=== PATIENT | male | born 1970 | race Caucasian/White ===

== ENCOUNTER 2025-05-10 16:55 | Observation (INO) ==
--- NOTE | 2025-05-10 17:14 | DR.EXTPAIN ---
HPI Time seen Time Seen by Provider: 05/10/25 17:13 Complaint/Symptoms Chief Complaint Doctor Comments: 54-year-old male to ED from home POV complaining of pain Left forearm.States had contact lens curve grinder injury 3 weeks ago and repaired at [facility].Patient states increasing pain and swelling. ROS Review of Systems Constitutional: No Symptoms Reported Eyes: No Symptoms Reported ENTM: No Symptoms Reported Respiratoy: No Symptoms Reported Cardiovascular: No Symptoms Reported Gastrointestinal/Abdominal: No Symptoms Reported Genitourinary: No Symptoms Reported Neurological: No Symptoms Reported Musculoskeletal: See HPI and Arm (Right arm pain and swelling) Integumentary: No Symptoms Reported Hematologic/Lymphatic: No Symptoms Reported Endocrine: No Symptoms Reported Psychiatric: No Symptoms Reported All Other Systems: Reviewed and Negative PE Vital Signs Vitals: Vital Signs Temperature 98.3 F Pulse Rate 94 Pulse Rate 91 Pulse Rate 96 Pulse Rate 94 Pulse Rate 95 Respiratory Rate 20 Blood Pressure 123/76 Blood Pressure 123/76 Blood Pressure 143/91 Blood Pressure 122/86 O2 Sat by Pulse Oximetry 95 O2 Sat by Pulse Oximetry 94 O2 Sat by Pulse Oximetry 95 O2 Sat by Pulse Oximetry 98 O2 Sat by Pulse Oximetry 98 General Limitations: No Limitations General Appearance: Alert and In No Apparent Distress Head Head Exam: Normal Inspection Eyes Eye exam: Normal Appearance ENT ENT Exam: Normal Exam Neck Neck Exam: Normal Inspection Chest Chest Inspection: Normal Inspection Respiratory Respiratory Exam: Normal Lung Sounds Bilat Cardiovascular Cardiovascular Exam: Regular Rate and Normal Rhythm Abdominal Exam Abdominal Exam: Normal Inspection, Normal Bowel Sounds and Soft Extremities Extremities Exam: Normal Inspection (Except right arm with pain and swelling forearm) Back Back Exam: Normal Inspection Neurological Neurological Exam: Alert, Oriented X3 and CN II-XII Intact Psychiatric Psychiatric Exam: Normal Affect and Normal Mood Skin Skin Exam: Warm, Dry, Intact and Normal Color COURSE Treatment Treatment: Discussed findings with patient agrees to admission discussed with Dr. Sanchez will admit ROR Labs Reviewed 05/10/25 17:11 05/10/25 17:11 Laboratory: 05/10/25 17:15 Arm - Wound Wound Gram Stain - Final WBC 13.2 X10^3/uL (3.6-10.0) H 05/10/25 17:11 RBC 4.79 X10^6/uL (4.7-6.0) 05/10/25 17:11 Hgb 14.3 g/dL (13.5-18.0) 05/10/25 17:11 Hct 42.2 % (42.0-54.0) 05/10/25 17:11 MCV 88.1 fL (80.0-100.0) 05/10/25 17:11 MCH 29.9 pg (27.0-34.0) 05/10/25 17:11 MCHC 34.0 g/dL (33.0-35.0) 05/10/25 17:11 RDW 14.0 % (11.6-16.5) 05/10/25 17:11 Plt Count 339 X10^3/uL (150.0-450.0) 05/10/25 17:11 MPV 7.2 fL (7.4-11.0) L 05/10/25 17:11 Neut % (Auto) 76.0 % (42.0-75.0) H 05/10/25 17:11 Lymph % (Auto) 13.8 % (21.0-51.0) L 05/10/25 17:11 [place] % (Auto) 8.9 % (0.0-13.0) 05/10/25 17:11 Eos % (Auto) 0.5 % (0.9-2.9) L 05/10/25 17:11 Baso % (Auto) 0.8 % (0.2-1.0) 05/10/25 17:11 Neut # (Auto) 10.1 x10^3/uL (2.2-4.8) H 05/10/25 17:11 Lymph # (Auto) 1.8 X10^3/uL (1.3-2.9) 05/10/25 17:11 [place] # (Auto) 1.2 x10^3/uL (0.3-0.8) H 05/10/25 17:11 Eos # (Auto) 0.1 x10^3/uL (0.0-0.2) 05/10/25 17:11 Baso # (Auto) 0.1 X10^3/uL (0.0-0.1) 05/10/25 17:11 Absolute Nucleated RBC 0.1 /100WBC 05/10/25 17:11 Sodium 140 mmol/L (136-145) 05/10/25 17:11 Corrected Sodium TNP 05/10/25 17:11 Potassium 4.3 mmol/L (3.5-5.1) 05/10/25 17:11 Chloride 103 mmol/L (98-107) 05/10/25 17:11 Carbon Dioxide 29.0 mmol/L (21-32) 05/10/25 17:11 BUN 13 mg/dL (7-18) 05/10/25 17:11 Creatinine 1.31 mg/dL (0.70-1.30) H 05/10/25 17:11 Est GFR (MDRD) Af Amer > 60 (>60) 05/10/25 17:11 Est GFR (MDRD) Non-Af > 60 (>60) 05/10/25 17:11 Glucose 88 mg/dL (65-99) 05/10/25 17:11 Lactic Acid 0.8 mmol/L (0.4-2.0) 05/10/25 17:11 Calcium 8.8 mg/dL (8.5-10.1) 05/10/25 17:11 Corrected Calcium TNP 05/10/25 17:11 Total Bilirubin 0.60 mg/dL (0.2-1.0) 05/10/25 17:11 AST 17 Units/L (15-37) 05/10/25 17:11 ALT 41 Units/L (12-78) 05/10/25 17:11 Alkaline Phosphatase 88 Units/L (46-116) 05/10/25 17:11 Total Protein 8.0 g/dL (6.4-8.2) 05/10/25 17:11 Albumin 4.1 g/dL (3.4-5.0) 05/10/25 17:11 Globulin 3.9 g/dL (2.5-4.5) 05/10/25 17:11 Albumin/Globulin Ratio 1.1 Ratio (1.1-2.1) 05/10/25 17:11 Opioid Opioid Risk Tool Total: 0 Total Score Risk Category: Low Risk Copyright: Abdias TOWNSEND predicting aberrant behaviors Discharge Plan Diagnosis Discharge Problem: Cellulitis Discharge Plan Patient Disposition: 09 ADMITTED INPATIENT Condition: Stable Prescriptions: No Action [facility] Concerns: Post Hospitalization: new medications and changes needed to prevent readmission or further decline. Pt educated and given instructions on all concerns. Plan of Treatment: Continue with present treatment and follow up plan. Pt is to keep follow up appointment as instructed and take medications as ordered. Follow ups/Referrals Follow ups/Referrals: NFD,None [Primary Care Provider] - 3 days Instructions Print Language: WOLOF
[2025-05-10] MEDS: ROCEPHIN VIAL 1 GRAM IVP ONE (17:32)
[2025-05-10 17:46] LABS: MEAN PLATELET VOLUME 7.2 fL (7.4-11.0); RED CELL DISTRIBUTION WIDTH 14.0 % (11.6-16.5)
[2025-05-10 17:51] VITALS: BMI 29.5
[2025-05-10 17:55] LABS: CREATININE 1.31 mg/dL (0.70-1.30); eGFR NON BLACK RACES > 60 (>60)
[2025-05-10] MEDS ORDERED: ULTRAM PO PRN (20:09)
[2025-05-10] MEDS ORDERED: NORCO 5/325 MG TAB PO PRN (20:09)
[2025-05-10] MEDS ORDERED: NS 250 ML IV 25 ML IV PRN (20:09)
--- NOTE | 2025-05-10 20:24 | DR.EXTPAIN ---
HPI Time seen Time Seen by Provider: 05/10/25 17:13 PCP Primary Care Physician: JENNIFER Complaint/Symptoms Chief Complaint Doctor Comments: Patient stated that three weeks ago he got cut by a stand grinder and went to [facility] and received sutures. Patient stated that he was not discharged with any antibiotics. Patient stated that yesterday he hit his left forearm on a stationary object and busted open the site. Patient stated that once the area open up it started to drain green in color pus. Patinets left forearm is noted to be swollen and hot to touch and pain with movement Chief Complaint:: Patient ambulated into triage with the CC of possible infection to the left forearm. Patient stated that three weeks ago he got cut by a stand grinder and went to [facility] and received sutures. Patient stated that he was not discharged with any antibiotics. Patient stated that yesterday he hit his left forearm on a stationary object and busted open the site. Patient stated that once the area open up it started to drain green in color pus. Patinets left forearm is noted to be swollen and hot to touch and pain with movement. COVID-19 Coronavirus risk:travel/contact w/high risk person: No Has patient experienced Coronavirus symptoms: No Source History Provided: Patient Mode of arrival Mode of Arrival: Ambulatory Timing Onset of Chief Complaint: 05/09/25 PMH PMH Past Medical History: No Past Surgical History: No Surgical History: No History Family History History of Family Medical Conditions: No Social History Type of Tobacco Use: Cigarettes Does any household member use tobacco: No Alcohol Use: None Do you use any recreational Drugs:: No (History of Drug Abuse) Lives With: Spouse Lives Where: Home Travel Risk Coronavirus risk:travel/contact w/high risk person: No Has patient experienced Coronavirus symptoms: No Infectious screening In the last 2 months have you had wt loss of >10#?: NO Have you had fever, night sweats or hemotysis?: No Have you traveled outside the country in the last 6 months?: No Isolation: Standard PE Vital Signs Vitals: Vital Signs Temperature 98.3 F Pulse Rate 99 Pulse Rate 93 Pulse Rate 90 Pulse Rate 100 Pulse Rate 98 Pulse Rate 91 Pulse Rate 89 Pulse Rate 92 Pulse Rate 94 Pulse Rate 91 Pulse Rate 96 Pulse Rate 94 Pulse Rate 95 Respiratory Rate 20 Blood Pressure 132/87 Blood Pressure 127/85 Blood Pressure 118/77 Blood Pressure 118/77 Blood Pressure 119/72 Blood Pressure 123/76 Blood Pressure 123/76 Blood Pressure 143/91 Blood Pressure 122/86 O2 Sat by Pulse Oximetry 96 O2 Sat by Pulse Oximetry 95 O2 Sat by Pulse Oximetry 95 O2 Sat by Pulse Oximetry 95 O2 Sat by Pulse Oximetry 95 O2 Sat by Pulse Oximetry 93 O2 Sat by Pulse Oximetry 95 O2 Sat by Pulse Oximetry 94 O2 Sat by Pulse Oximetry 95 O2 Sat by Pulse Oximetry 94 O2 Sat by Pulse Oximetry 95 O2 Sat by Pulse Oximetry 98 O2 Sat by Pulse Oximetry 98 ROR Labs Reviewed 05/10/25 17:11 05/10/25 17:11 Laboratory: 05/10/25 17:15 Arm - Wound Wound Gram Stain - Final WBC 13.2 X10^3/uL (3.6-10.0) H 05/10/25 17:11 RBC 4.79 X10^6/uL (4.7-6.0) 05/10/25 17:11 Hgb 14.3 g/dL (13.5-18.0) 05/10/25 17:11 Hct 42.2 % (42.0-54.0) 05/10/25 17:11 MCV 88.1 fL (80.0-100.0) 05/10/25 17:11 MCH 29.9 pg (27.0-34.0) 05/10/25 17:11 MCHC 34.0 g/dL (33.0-35.0) 05/10/25 17:11 RDW 14.0 % (11.6-16.5) 05/10/25 17:11 Plt Count 339 X10^3/uL (150.0-450.0) 05/10/25 17:11 MPV 7.2 fL (7.4-11.0) L 05/10/25 17:11 Neut % (Auto) 76.0 % (42.0-75.0) H 05/10/25 17:11 Lymph % (Auto) 13.8 % (21.0-51.0) L 05/10/25 17:11 [place] % (Auto) 8.9 % (0.0-13.0) 05/10/25 17:11 Eos % (Auto) 0.5 % (0.9-2.9) L 05/10/25 17:11 Baso % (Auto) 0.8 % (0.2-1.0) 05/10/25 17:11 Neut # (Auto) 10.1 x10^3/uL (2.2-4.8) H 05/10/25 17:11 Lymph # (Auto) 1.8 X10^3/uL (1.3-2.9) 05/10/25 17:11 [place] # (Auto) 1.2 x10^3/uL (0.3-0.8) H 05/10/25 17:11 Eos # (Auto) 0.1 x10^3/uL (0.0-0.2) 05/10/25 17:11 Baso # (Auto) 0.1 X10^3/uL (0.0-0.1) 05/10/25 17:11 Absolute Nucleated RBC 0.1 /100WBC 05/10/25 17:11 Sodium 140 mmol/L (136-145) 05/10/25 17:11 Corrected Sodium TNP 05/10/25 17:11 Potassium 4.3 mmol/L (3.5-5.1) 05/10/25 17:11 Chloride 103 mmol/L (98-107) 05/10/25 17:11 Carbon Dioxide 29.0 mmol/L (21-32) 05/10/25 17:11 BUN 13 mg/dL (7-18) 05/10/25 17:11 Creatinine 1.31 mg/dL (0.70-1.30) H 05/10/25 17:11 Est GFR (MDRD) Af Amer > 60 (>60) 05/10/25 17:11 Est GFR (MDRD) Non-Af > 60 (>60) 05/10/25 17:11 Glucose 88 mg/dL (65-99) 05/10/25 17:11 Lactic Acid 0.8 mmol/L (0.4-2.0) 05/10/25 17:11 Calcium 8.8 mg/dL (8.5-10.1) 05/10/25 17:11 Corrected Calcium TNP 05/10/25 17:11 Total Bilirubin 0.60 mg/dL (0.2-1.0) 05/10/25 17:11 AST 17 Units/L (15-37) 05/10/25 17:11 ALT 41 Units/L (12-78) 05/10/25 17:11 Alkaline Phosphatase 88 Units/L (46-116) 05/10/25 17:11 Total Protein 8.0 g/dL (6.4-8.2) 05/10/25 17:11 Albumin 4.1 g/dL (3.4-5.0) 05/10/25 17:11 Globulin 3.9 g/dL (2.5-4.5) 05/10/25 17:11 Albumin/Globulin Ratio 1.1 Ratio (1.1-2.1) 05/10/25 17:11 Opioid Opioid Risk Tool Age ([place] if 16-45): No History of Preadolescent Sexual Abuse: No Total: 0 Total Score Risk Category: Low Risk Copyright: Abdias TOWNSEND predicting aberrant behaviors Discharge Plan Diagnosis Discharge Problem: Cellulitis Discharge Plan Patient Disposition: ADMITTED INPATIENT Condition: Stable Prescriptions: No Action [facility] Concerns: Post Hospitalization: new medications and changes needed to prevent readmission or further decline. Pt educated and given instructions on all concerns. Plan of Treatment: Continue with present treatment and follow up plan. Pt is to keep follow up appointment as instructed and take medications as ordered. Follow ups/Referrals Follow ups/Referrals: NFD,None [Primary Care Provider] - 3 days Instructions Print Language: WOLOF
[2025-05-10] MEDS: TYLENOL 325 MG TAB PO PRN (21:03)
[2025-05-10] MEDS: CONSULT PHARMACY - POTASSIUM & MAGNESIUM XX SCH (21:20)
[2025-05-10] MEDS: ZOSYN VIAL 3.375 GRAMS 3.375 G in NS 100 ML IV 100 ML IV SCH (21:20)
--- NOTE | 2025-05-10 21:25 | CT ---
EXAM: UPPER EXT W/O CON HISTORY: possible infection to the left forearm. Patient stated that three weeks ago he got cut by a centerless grinder tender and went to [facility] and received sutures.; left forearm COMPARISON: None. TECHNIQUE: Non-con trast axial CT images of the left forearm/upper extremity. Images were reformatted into coronal and sagittal planes for further evaluation. Radiation dose: 172.21 mGy-cm total DLP FINDINGS: Subcutaneous edema in the dorsal aspect of the forearm with associated cutaneous thickening. No soft tissue gas. No flocculent collection identified. No radiopaque foreign body. No acute osseous abnormality. No elbow joint effusion. IMPRESSION: Subcutaneous edema in the dorsal aspect of the forearm with associated cutaneous thickening. Findings are not specific but could be seen with cellulitis. No evidence of abscess formation. THIS IS AN ELECTRONICALLY VERIFIED FINAL REPORT 05/10/2025 9:22 PM - Electronically signed by Kareem Vizcaino MD
[2025-05-11 05:50] LABS: MEAN PLATELET VOLUME 7.2 fL (7.4-11.0); RED CELL DISTRIBUTION WIDTH 14.0 % (11.6-16.5)
[2025-05-11 06:01] LABS: CREATININE 1.18 mg/dL (0.70-1.30); eGFR NON BLACK RACES > 60 (>60)
[2025-05-11] MEDS: NS 250 ML IV 250 ML IV ONE (09:28)
[2025-05-11] MEDS: ROCEPHIN VIAL 1 GRAM ONE (09:28)
[2025-05-11] MEDS: NS 100 ML IV 100 ML ONE (09:28)
[2025-05-11] MEDS: OMNIPAQUE 350 mg/mL 100 mL BTL 100 ML ONE (09:28)
[2025-05-11] MEDS: NS 1,000 ML IV 1,000 ML IV SCH (10:21)
[2025-05-11] MEDS: LEVAQUIN PREMIX IV 750 MG 750 MG/150 ML BAG IV SCH (10:21)
[2025-05-11] MEDS: BACTROBAN TOPICAL OINT TOP ONE (11:57)
[2025-05-11] MEDS: HYDROGEN PEROXIDE 3% MT PRN (11:58)
[2025-05-11] MEDS: VANCOMYCIN IV *PREMIX 1.25 G/250 ML BAG 1.25 G/250 ML PIGGYBACK IV SCH (14:17)
--- NOTE | 2025-05-11 22:22 | DR.H&P ---
H&P History & Physical for Day of: H&P Date: 05/11/25 Chief Complaint Chief Complaint: left forearm pain and discharge History of Present Illness History of Present Illness: Patient is a 54-year-old male that is presenting with left forearm pain and discharge. He reports that initial injury happened a few weeks prior. He was at work and a jig grinder cut his forearm. He received stitches. His sutures were subsequently removed. He said he went back to work and he was performing a task in which the area opened back up which was during the last 2 to 3 days. Since then he has had discharge and redness and pain in the left forearm. He reports purulent discharge. Denies fevers or chills. Labs/imaging: WBC 13.210.5, hemoglobin 14.4, platelets 316, sodium 139, potassium 4.2, creatinine 1.18, glucose 98. CT was obtained that revealed left forearm cellulitis but no underlying abscess. Blood/wound cultures pending. Will at this time continue with IV antibiotics and will use IV vancomycin and Levaquin. Will also consult general surgeryDr. Santamaria for further evaluation. Otherwise continue with current treatment plan. Continue closely monitor follow-up labs/imaging. Past Surgical History Surgical History: No History Social History Does patient currently use any type of tobacco product: Yes Type of Tobacco Use: Cigarettes Does any household member use tobacco: No Alcohol Use: None Drug Use: None Medications Home Medications: Home Medications Medication Instructions Recorded Confirmed Type NK 05/10/25 05/10/25 History Allergies Allergies Allergy/AdvReac Type Severity Reaction Status Date / Time Penicillins Allergy Verified 05/10/25 21:44 Labs 05/11/25 05:25 05/11/25 05:25 Labs: 05/10/25 17:15 Arm - Wound Wound Gram Stain - Final 05/10/25 17:15 Arm - Wound Wound Culture - Preliminary Laboratory WBC 10.5 X10^3/uL (3.6-10.0) H 05/11/25 05:25 RBC 4.64 X10^6/uL (4.7-6.0) L 05/11/25 05:25 Hgb 14.4 g/dL (13.5-18.0) 05/11/25 05:25 Hct 40.8 % (42.0-54.0) L 05/11/25 05:25 MCV 88.0 fL (80.0-100.0) 05/11/25 05:25 MCH 30.9 pg (27.0-34.0) 05/11/25 05:25 MCHC 35.2 g/dL (33.0-35.0) H 05/11/25 05:25 RDW 14.0 % (11.6-16.5) 05/11/25 05:25 Plt Count 316 X10^3/uL (150.0-450.0) 05/11/25 05:25 MPV 7.2 fL (7.4-11.0) L 05/11/25 05:25 Neut % (Auto) 72.3 % (42.0-75.0) 05/11/25 05:25 Lymph % (Auto) 14.9 % (21.0-51.0) L 05/11/25 05:25 [place] % (Auto) 10.5 % (0.0-13.0) 05/11/25 05:25 Eos % (Auto) 1.4 % (0.9-2.9) 05/11/25 05:25 Baso % (Auto) 0.9 % (0.2-1.0) 05/11/25 05:25 Neut # (Auto) 7.6 x10^3/uL (2.2-4.8) H 05/11/25 05:25 Lymph # (Auto) 1.6 X10^3/uL (1.3-2.9) 05/11/25 05:25 [place] # (Auto) 1.1 x10^3/uL (0.3-0.8) H 05/11/25 05:25 Eos # (Auto) 0.1 x10^3/uL (0.0-0.2) 05/11/25 05:25 Baso # (Auto) 0.1 X10^3/uL (0.0-0.1) 05/11/25 05:25 Absolute Nucleated RBC 0.0 /100WBC 05/11/25 05:25 Sodium 139 mmol/L (136-145) 05/11/25 05:25 Corrected Sodium TNP 05/11/25 05:25 Potassium 4.2 mmol/L (3.5-5.1) 05/11/25 05:25 Chloride 104 mmol/L (98-107) 05/11/25 05:25 Carbon Dioxide 26.1 mmol/L (21-32) 05/11/25 05:25 BUN 13 mg/dL (7-18) 05/11/25 05:25 Creatinine 1.18 mg/dL (0.70-1.30) 05/11/25 05:25 Est GFR (MDRD) Af Amer > 60 (>60) 05/11/25 05:25 Est GFR (MDRD) Non-Af > 60 (>60) 05/11/25 05:25 Glucose 98 mg/dL (65-99) 05/11/25 05:25 Lactic Acid 0.8 mmol/L (0.4-2.0) 05/10/25 17:11 Calcium 8.3 mg/dL (8.5-10.1) L 05/11/25 05:25 Corrected Calcium TNP 05/11/25 05:25 Total Bilirubin 0.50 mg/dL (0.2-1.0) 05/11/25 05:25 AST 15 Units/L (15-37) 05/11/25 05:25 ALT 37 Units/L (12-78) 05/11/25 05:25 Alkaline Phosphatase 81 Units/L (46-116) 05/11/25 05:25 Total Protein 7.3 g/dL (6.4-8.2) 05/11/25 05:25 Albumin 3.6 g/dL (3.4-5.0) 05/11/25 05:25 Globulin 3.7 g/dL (2.5-4.5) 05/11/25 05:25 Albumin/Globulin Ratio 1.0 Ratio (1.1-2.1) L 05/11/25 05:25 Review of Systems Constitutional: No Symptoms Reported Eyes: No Symptoms Reported ENT: No Symptoms Reported Respiratory: No Symptoms Reported Cardiovascular: No Symptoms Reported Gastrointestinal: No Symptoms Reported Genitourinary: No Symptoms Reported Musculoskeletal: No Symptoms Reported Skin: Wound (left forearm) Neurological: No Symptoms Reported Physical Exam Vital Signs: Vital Signs Temperature 98.0 F Pulse Rate [Left Brachial] 92 Respiratory Rate 16 Blood Pressure [Left Arm] 109/71 O2 Sat by Pulse Oximetry 94 Oriented: Normal Eyes: Normal Ear: Normal Nose: Normal Throat: Normal Respiratory: Clear Throughout Cardiovascular: Normal : Normal Auscultation: Bowel Sounds: Normal Palpation: Normal Tenderness: Normal Skin: Normal Musculoskeletal: Left and Forearm (erythema and purulent discharge) Psychiatric: Normal Mood Description: Calm and Appropriate Affect: Normal Speech Pattern: Clear and Appropriate Assessment/Plan (1) Cellulitis: Qualifiers: Site of cellulitis: extremity Site of cellulitis of extremity: upper extremity Laterality: left Qualified Code(s): L03.114 - Cellulitis of left upper limb Status: Acute Plan: Continue IV antibiotics Consult general surgery follow up cultures. Review H&P Reviewed: Yes Patient was examined?: Yes
[2025-05-12 05:08] LABS: MEAN PLATELET VOLUME 7.4 fL (7.4-11.0); RED CELL DISTRIBUTION WIDTH 13.8 % (11.6-16.5)
[2025-05-12 05:22] LABS: COR CA(FOR HYPOALB) 8.6 mg/dL (8.5-10.1); CREATININE 1.10 mg/dL (0.70-1.30); eGFR NON BLACK RACES > 60 (>60)
--- NOTE | 2025-05-12 11:11 | PCM.PROG ---
Progress Note Progress Note for Day of Date of Exam: 05/12/25 Subjective Subjective: Patient seen at bedside, no acute events overnight. He is currently admitted for left arm cellulitis. His redness and drainage has improved significantly. Wound cultures growing coagulase positive staph. He remains on Levaquin and vancomycin. Dr. Castellanos is consulted. Labs/imaging reviewed: - WBC 9.1 hemoglobin 13.2 potassium 4.1 creatinine 1.10 - Wound cultures coagulase positive staph Plan: Continue IV Levaquin and vancomycin. Keep arm elevated. Sling placement as needed. Follow surgery recommendations. Follow-up final wound cultures. Continue home medications. Replace electrolytes as per protocol. Monitor a.m. labs and imaging. Past Medical Family Social History Allergies: Allergies Penicillins Allergy (Verified 05/10/25 21:44) Vital Signs and I&O's Vital Signs: Vital Signs Temperature 98.4 F Temperature 98 F Pulse Rate [Left Brachial] 81 Pulse Rate [Left Brachial] 77 Respiratory Rate 16 Respiratory Rate 18 Blood Pressure [Left Arm] 103/60 Blood Pressure [Left Arm] 104/63 O2 Sat by Pulse Oximetry 98 O2 Sat by Pulse Oximetry 95 Intake and Output: Intake & Output 05/09/25 05/10/25 05/11/25 05/12/25 23:59 23:59 23:59 23:59 Intake Total 2720 / 2720 1174 / 1174 Balance 2720 / 2720 1174 / 1174 Physical Exam Oriented: Normal Eyes: Normal Ear: Normal Nose: Normal Throat: Normal Respiratory: Normal Cardiovascular: Normal Auscultation: Bowel Sounds: Normal Palpation: Normal Tenderness: Normal Skin: Normal Musculoskeletal: Left and Forearm (erythema and purulent discharge) Psychiatric: Normal Mood Description: Calm and Appropriate Affect: Normal Speech Pattern: Clear and Appropriate Laboratory and Diagnostics 05/12/25 04:10 05/12/25 04:10 Labs: 05/10/25 17:15 Arm - Wound Wound Gram Stain - Final 05/10/25 17:15 Arm - Wound Wound Culture - Preliminary Laboratory WBC 9.1 X10^3/uL (3.6-10.0) 05/12/25 04:10 RBC 4.30 X10^6/uL (4.7-6.0) L 05/12/25 04:10 Hgb 13.2 g/dL (13.5-18.0) L 05/12/25 04:10 Hct 37.7 % (42.0-54.0) L 05/12/25 04:10 MCV 87.5 fL (80.0-100.0) 05/12/25 04:10 MCH 30.6 pg (27.0-34.0) 05/12/25 04:10 MCHC 34.9 g/dL (33.0-35.0) 05/12/25 04:10 RDW 13.8 % (11.6-16.5) 05/12/25 04:10 Plt Count 288 X10^3/uL (150.0-450.0) 05/12/25 04:10 MPV 7.4 fL (7.4-11.0) 05/12/25 04:10 Neut % (Auto) 71.2 % (42.0-75.0) 05/12/25 04:10 Lymph % (Auto) 14.8 % (21.0-51.0) L 05/12/25 04:10 [place] % (Auto) 11.4 % (0.0-13.0) 05/12/25 04:10 Eos % (Auto) 1.8 % (0.9-2.9) 05/12/25 04:10 Baso % (Auto) 0.8 % (0.2-1.0) 05/12/25 04:10 Neut # (Auto) 6.5 x10^3/uL (2.2-4.8) H 05/12/25 04:10 Lymph # (Auto) 1.3 X10^3/uL (1.3-2.9) 05/12/25 04:10 [place] # (Auto) 1.0 x10^3/uL (0.3-0.8) H 05/12/25 04:10 Eos # (Auto) 0.2 x10^3/uL (0.0-0.2) 05/12/25 04:10 Baso # (Auto) 0.1 X10^3/uL (0.0-0.1) 05/12/25 04:10 Absolute Nucleated RBC 0.0 /100WBC 05/12/25 04:10 Sodium 139 mmol/L (136-145) 05/12/25 04:10 Corrected Sodium TNP 05/12/25 04:10 Potassium 4.1 mmol/L (3.5-5.1) 05/12/25 04:10 Chloride 105 mmol/L (98-107) 05/12/25 04:10 Carbon Dioxide 25.4 mmol/L (21-32) 05/12/25 04:10 BUN 10 mg/dL (7-18) 05/12/25 04:10 Creatinine 1.10 mg/dL (0.70-1.30) 05/12/25 04:10 Est GFR (MDRD) Af Amer > 60 (>60) 05/12/25 04:10 Est GFR (MDRD) Non-Af > 60 (>60) 05/12/25 04:10 Glucose 103 mg/dL (65-99) H 05/12/25 04:10 Lactic Acid 0.8 mmol/L (0.4-2.0) 05/10/25 17:11 Calcium 8.0 mg/dL (8.5-10.1) L 05/12/25 04:10 Corrected Calcium 8.6 mg/dL (8.5-10.1) 05/12/25 04:10 Total Bilirubin 0.30 mg/dL (0.2-1.0) 05/12/25 04:10 AST 16 Units/L (15-37) 05/12/25 04:10 ALT 32 Units/L (12-78) 05/12/25 04:10 Alkaline Phosphatase 74 Units/L (46-116) 05/12/25 04:10 Total Protein 6.8 g/dL (6.4-8.2) 05/12/25 04:10 Albumin 3.2 g/dL (3.4-5.0) L 05/12/25 04:10 Globulin 3.6 g/dL (2.5-4.5) 05/12/25 04:10 Albumin/Globulin Ratio 0.9 Ratio (1.1-2.1) L 05/12/25 04:10 Plan (1) Cellulitis: Status: Acute Qualifiers: Laterality: left Site of cellulitis: extremity Site of cellulitis of extremity: upper extremity Qualified Code(s): L03.114 - Cellulitis of left upper limb
[2025-05-12 14:38] LABS: CREATININE 1.0 mg/dL (0.70-1.30)
[2025-05-12] MEDS: PHARMACY COMMENT IV ONE (15:53)
[2025-05-12 17:05] LABS: CREATININE 1.02 mg/dL (0.70-1.30)
[2025-05-13 06:23] LABS: MEAN PLATELET VOLUME 7.0 fL (7.4-11.0)
[2025-05-13 06:31] LABS: RED CELL DISTRIBUTION WIDTH 13.8 % (11.6-16.5)
[2025-05-13 06:44] LABS: COR CA(FOR HYPOALB) 8.6 mg/dL (8.5-10.1); CREATININE 0.93 mg/dL (0.70-1.30); eGFR NON BLACK RACES > 60 (>60)
[2025-05-13 07:53] VITALS: RESP 18
[2025-05-13 11:59] VITALS: BP 134/86; PULSE 85; TEMP 97.6; O2SAT 97
--- NOTE | 2025-05-15 14:15 | W.DIS.FURT ---
Summary of Discharge Discharge Summary of Date Date of Exam: 05/13/25 Admission Date Date of Admission: 05/10/25 Admission Diagnosis Patient Problems (Updated 05/11/25 @ 22:21 by Jean-Claude Sanchez MD) Cellulitis (Acute) L03.90 Hospital Course: Patient is a 54-year-old male that is presenting with left forearm pain and discharge. He reports that initial injury happened a few weeks prior. He was at work and a platen grinder cut his forearm. He received stitches. His sutures were subsequently removed. He said he went back to work and he was performing a task in which the area opened back up which was during the last 2 to 3 days. Since then he has had discharge and redness and pain in the left forearm. He reports purulent discharge. Denies fevers or chills. Labs/imaging: WBC 13.210.5, hemoglobin 14.4, platelets 316, sodium 139, potassium 4.2, creatinine 1.18, glucose 98. CT was obtained that revealed left forearm cellulitis but no underlying abscess. Cultures were collected and patient was started on IV antibiotics. His labs were monitored daily and electrolytes replaced as needed. With general surgery was also consulted for wound care. Patient's redness and swelling improved. Wound culture grew out Staph aureus, blood cultures were negative. Patient was feeling better with tolerable pain and range of motion. He was stable for discharge home on p.o. antibiotics. He will follow-up with PCP as scheduled. Vital Signs: Vital Signs (72 hours) 05/10/25 16:55 05/10/25 17:33 05/10/25 17:45 Temperature 98.3 F Pulse Rate 95 H 94 H 96 H Pulse Rate [Brachial] Pulse Rate [Left Brachial] Respiratory Rate 20 Blood Pressure 122/86 Blood Pressure [Left Arm] O2 Sat by Pulse Oximetry 98 98 95 Oxygen Delivery Method Room Air 05/10/25 17:51 05/10/25 18:00 05/10/25 18:00 Temperature Pulse Rate 91 H Pulse Rate [Brachial] Pulse Rate [Left Brachial] Respiratory Rate Blood Pressure 143/91 123/76 Blood Pressure [Left Arm] O2 Sat by Pulse Oximetry 94 L Oxygen Delivery Method 05/10/25 18:15 05/10/25 18:25 05/10/25 18:30 Temperature Pulse Rate 94 H Pulse Rate [Brachial] Pulse Rate [Left Brachial] Respiratory Rate Blood Pressure 123/76 119/72 Blood Pressure [Left Arm] O2 Sat by Pulse Oximetry 95 Oxygen Delivery Method 05/10/25 18:30 05/10/25 18:45 05/10/25 19:00 Temperature Pulse Rate 92 H 89 91 H Pulse Rate [Brachial] Pulse Rate [Left Brachial] Respiratory Rate Blood Pressure Blood Pressure [Left Arm] O2 Sat by Pulse Oximetry 94 L 95 93 L Oxygen Delivery Method 05/10/25 19:00 05/10/25 19:00 05/10/25 19:15 Temperature Pulse Rate 98 H Pulse Rate [Brachial] Pulse Rate [Left Brachial] Respiratory Rate Blood Pressure 118/77 118/77 Blood Pressure [Left Arm] O2 Sat by Pulse Oximetry 95 Oxygen Delivery Method 05/10/25 19:30 05/10/25 19:30 05/10/25 19:45 Temperature Pulse Rate 100 H 90 Pulse Rate [Brachial] Pulse Rate [Left Brachial] Respiratory Rate Blood Pressure 127/85 Blood Pressure [Left Arm] O2 Sat by Pulse Oximetry 95 95 Oxygen Delivery Method 05/10/25 20:00 05/10/25 20:00 05/10/25 20:15 Temperature Pulse Rate 93 H 99 H Pulse Rate [Brachial] Pulse Rate [Left Brachial] Respiratory Rate Blood Pressure 132/87 Blood Pressure [Left Arm] O2 Sat by Pulse Oximetry 95 96 Oxygen Delivery Method 05/10/25 20:40 05/10/25 20:42 05/10/25 21:03 Temperature Pulse Rate Pulse Rate [Brachial] Pulse Rate [Left Brachial] Respiratory Rate 18 Blood Pressure Blood Pressure [Left Arm] 134/80 O2 Sat by Pulse Oximetry Oxygen Delivery Method Room Air 05/10/25 22:03 05/11/25 00:00 05/11/25 00:00 Temperature 97.9 F 97.9 F Pulse Rate Pulse Rate [Brachial] 98 H Pulse Rate [Left Brachial] 98 H Respiratory Rate 21 18 18 Blood Pressure Blood Pressure [Left Arm] 103/58 103/58 O2 Sat by Pulse Oximetry 97 97 Oxygen Delivery Method Room Air Room Air 05/11/25 04:00 05/11/25 07:00 05/11/25 07:56 Temperature 97.8 F 98.1 F Pulse Rate Pulse Rate [Brachial] Pulse Rate [Left Brachial] 85 83 Respiratory Rate 18 16 Blood Pressure Blood Pressure [Left Arm] 125/65 106/63 O2 Sat by Pulse Oximetry 95 95 Oxygen Delivery Method Room Air Room Air Room Air 05/11/25 09:24 05/11/25 10:24 05/11/25 12:00 Temperature 98.3 F Pulse Rate Pulse Rate [Brachial] Pulse Rate [Left Brachial] 100 H Respiratory Rate 17 17 16 Blood Pressure Blood Pressure [Left Arm] 113/82 O2 Sat by Pulse Oximetry 97 Oxygen Delivery Method Room Air 05/11/25 16:00 05/11/25 19:00 05/11/25 20:00 Temperature 98.0 F 98.0 F Pulse Rate Pulse Rate [Brachial] Pulse Rate [Left Brachial] 92 H 97 H Respiratory Rate 16 18 Blood Pressure Blood Pressure [Left Arm] 109/71 117/70 O2 Sat by Pulse Oximetry 94 L 95 Oxygen Delivery Method Room Air Room Air Room Air 05/12/25 00:00 05/12/25 04:00 05/12/25 07:00 Temperature 98.3 F 98 F Pulse Rate Pulse Rate [Brachial] Pulse Rate [Left Brachial] 91 H 77 Respiratory Rate 18 18 Blood Pressure Blood Pressure [Left Arm] 106/75 104/63 O2 Sat by Pulse Oximetry 94 L 95 Oxygen Delivery Method Room Air Room Air Room Air 05/12/25 08:00 05/12/25 12:00 05/12/25 16:00 Temperature 98.4 F 98.1 F 98.4 F Pulse Rate Pulse Rate [Brachial] Pulse Rate [Left Brachial] 81 97 H 78 Respiratory Rate 16 18 18 Blood Pressure Blood Pressure [Left Arm] 103/60 104/67 106/64 O2 Sat by Pulse Oximetry 98 96 97 Oxygen Delivery Method Room Air Room Air Room Air 05/12/25 19:00 05/12/25 20:00 05/13/25 00:00 Temperature 97.6 F 98.0 F Pulse Rate Pulse Rate [Brachial] Pulse Rate [Left Brachial] 87 78 Respiratory Rate 19 19 Blood Pressure Blood Pressure [Left Arm] 119/77 123/69 O2 Sat by Pulse Oximetry 97 97 Oxygen Delivery Method Room Air Room Air Room Air 05/13/25 03:57 05/13/25 07:00 05/13/25 07:52 Temperature 98.0 F 98.2 F Pulse Rate Pulse Rate [Brachial] Pulse Rate [Left Brachial] 77 78 Respiratory Rate 20 18 Blood Pressure Blood Pressure [Left Arm] 97/53 116/60 O2 Sat by Pulse Oximetry 97 96 Oxygen Delivery Method Room Air Room Air Room Air Labs: Laboratory Last Values WBC 7.4 X10^3/uL (3.6-10.0) 05/13/25 05:58 RBC 4.29 X10^6/uL (4.7-6.0) L 05/13/25 05:58 Hgb 13.1 g/dL (13.5-18.0) L 05/13/25 05:58 Hct 38.1 % (42.0-54.0) L 05/13/25 05:58 MCV 88.7 fL (80.0-100.0) 05/13/25 05:58 MCH 30.5 pg (27.0-34.0) 05/13/25 05:58 MCHC 34.3 g/dL (33.0-35.0) 05/13/25 05:58 RDW 13.8 % (11.6-16.5) 05/13/25 05:58 Plt Count 281 X10^3/uL (150.0-450.0) 05/13/25 05:58 MPV 7.0 fL (7.4-11.0) L 05/13/25 05:58 Neut % (Auto) 69.4 % (42.0-75.0) 05/13/25 05:58 Lymph % (Auto) 17.7 % (21.0-51.0) L 05/13/25 05:58 Dickinson % (Auto) 9.2 % (0.0-13.0) 05/13/25 05:58 Eos % (Auto) 2.3 % (0.9-2.9) 05/13/25 05:58 Baso % (Auto) 1.4 % (0.2-1.0) H 05/13/25 05:58 Neut # (Auto) 5.2 x10^3/uL (2.2-4.8) H 05/13/25 05:58 Lymph # (Auto) 1.3 X10^3/uL (1.3-2.9) 05/13/25 05:58 Dickinson # (Auto) 0.7 x10^3/uL (0.3-0.8) 05/13/25 05:58 Eos # (Auto) 0.2 x10^3/uL (0.0-0.2) 05/13/25 05:58 Baso # (Auto) 0.1 X10^3/uL (0.0-0.1) 05/13/25 05:58 Absolute Nucleated RBC 0.1 /100WBC 05/13/25 05:58 Sodium 140 mmol/L (136-145) 05/13/25 05:58 Corrected Sodium TNP 05/13/25 05:58 Potassium 4.1 mmol/L (3.5-5.1) 05/13/25 05:58 Chloride 106 mmol/L (98-107) 05/13/25 05:58 Carbon Dioxide 24.8 mmol/L (21-32) 05/13/25 05:58 BUN 7 mg/dL (7-18) 05/13/25 05:58 Creatinine 0.93 mg/dL (0.70-1.30) 05/13/25 05:58 Est GFR (MDRD) Af Amer > 60 (>60) 05/13/25 05:58 Est GFR (MDRD) Non-Af > 60 (>60) 05/13/25 05:58 Glucose 91 mg/dL (65-99) 05/13/25 05:58 Lactic Acid 0.8 mmol/L (0.4-2.0) 05/10/25 17:11 Calcium 7.8 mg/dL (8.5-10.1) L 05/13/25 05:58 Corrected Calcium 8.6 mg/dL (8.5-10.1) 05/13/25 05:58 Total Bilirubin 0.40 mg/dL (0.2-1.0) 05/13/25 05:58 AST 19 Units/L (15-37) 05/13/25 05:58 ALT 38 Units/L (12-78) 05/13/25 05:58 Alkaline Phosphatase 73 Units/L (46-116) 05/13/25 05:58 Total Protein 6.6 g/dL (6.4-8.2) 05/13/25 05:58 Albumin 3.0 g/dL (3.4-5.0) L 05/13/25 05:58 Globulin 3.6 g/dL (2.5-4.5) 05/13/25 05:58 Albumin/Globulin Ratio 0.8 Ratio (1.1-2.1) L 05/13/25 05:58 Vancomycin Trough 17.9 ug/mL (15-20) 05/12/25 16:34 Reason For Visit: CELLULITIS Discharge Diagnosis All Active Problems (Updated 05/11/25 @ 22:21 by Jean-Claude Sanchez MD) Cellulitis (Acute) Plan of Treatment: Continue with present treatment and follow up plan. Pt is to keep follow up appointment as instructed and take medications as ordered. Discharge Medications Discharge Medications: Penicillins Allergy (Verified 05/10/25 21:44) New Prescriptions levofloxacin 500 mg tablet 500 mg PO QDAY 7 days #7 tabs 05/13/25 [Rx] tramadol 50 mg tablet 50 mg PO Q6H PRN Breakthrough Pain, Moderate 3 days #12 tabs 05/13/25 [Rx] Discharge Disposition Discharge Disposition: To home Discharge Condition: Stable Discharge Plan Discharge Plan Hospital Course: Patient is a 54-year-old male that is presenting with left forearm pain and discharge. He reports that initial injury happened a few weeks prior. He was at work and a platen grinder cut his forearm. He received stitches. His sutures were subsequently removed. He said he went back to work and he was performing a task in which the area opened back up which was during the last 2 to 3 days. Since then he has had discharge and redness and pain in the left forearm. He reports purulent discharge. Denies fevers or chills. Labs/imaging: WBC 13.210.5, hemoglobin 14.4, platelets 316, sodium 139, potassium 4.2, creatinine 1.18, glucose 98. CT was obtained that revealed left forearm cellulitis but no underlying abscess. Cultures were collected and patient was started on IV antibiotics. His labs were monitored daily and electrolytes replaced as needed. With general surgery was also consulted for wound care. Patient's redness and swelling improved. Wound culture grew out Staph aureus, blood cultures were negative. Patient was feeling better with tolerable pain and range of motion. He was stable for discharge home on p.o. antibiotics. He will follow- up with PCP as scheduled. Patient Disposition: 01 HOME, SELF-CARE Condition: Stable Health Concerns: Post Hospitalization: new medications and changes needed to prevent readmission or further decline. Pt educated and given instructions on all concerns. Plan of Treatment: Continue with present treatment and follow up plan. Pt is to keep follow up appointment as instructed and take medications as ordered. Prescription drug monitoring program results: PDMP reviewed and no concerns identified Prescriptions: New tramadol 50 mg Tablet 50 mg PO Q6H MDD 4 PRN (Reason: Breakthrough Pain, Moderate) 3 Days Qty: 12 0RF levofloxacin 500 mg tablet 500 mg PO QDAY 7 Days Qty: 7 0RF Orders to Discharge Patient Discharge Orders: Discharge (Routine); Ordered 05/13/25 Ordered By: Ariadne Laura Follow ups/Referrals Follow ups/Referrals: Ariadne Laura MD [STAFF PHYSICIAN, Unknown] - 1 WEEK Referral Note: hospital follow up Instructions Instructions: Cellulitis, Adult, [id number] Activity Restrictions/Additional Instructions: PT IS TO RETURN TO WORK ON WEDNESDAY ,BR Stand Alone Forms: Excuse From Work or School, Find Help Web Site, [facility] Follow Up Care Print Language: PANAMANIAN
== END 2025-05-13 12:10 | disposition home or self-care (01) ==
LOC: ER 16:55 → MED/SURG 16:55
PROVIDERS: ADMIT Family Medicine; ATTEND Family Medicine
DX: R94.4 Abnormal results of kidney function studies; M79.632 Pain in left forearm; W29.8XXD Contact with other powered hand tools and household machinery, subsequent encounter; S51.812D Laceration without foreign body of left forearm, subsequent encounter; E83.51 Hypocalcemia; Z72.0 Tobacco use; L03.114 Cellulitis of left upper limb; Y92.9 Unspecified place or not applicable; D72.828 Other elevated white blood cell count; B95.61 Methicillin susceptible Staphylococcus aureus infection as the cause of diseases classified elsewhere